=== PATIENT | female | born 1985 | race Caucasian/White ===

== ENCOUNTER → 2017-08-11 | Outpatient (CLI) | payer MEDICAID | END | disposition home or self-care (01) | LOC: US 07:23 | PROVIDERS: ATTEND Acupuncturist | DX: K82.4 Cholesterolosis of gallbladder (principal); K76.0 Fatty (change of) liver, not elsewhere classified | CPT/HCPCS: 76700 ==

== ENCOUNTER 2017-11-13 01:44 | Observation (INO) | payer MEDICAID | END 2017-11-13 03:10 | disposition home or self-care (01) | LOC: L&D 01:44 | PROVIDERS: ADMIT Obstetrics & Gynecology; ATTEND Obstetrics & Gynecology | DX: O99.342 Other mental disorders complicating pregnancy, second trimester (principal); F32.9 Major depressive disorder, single episode, unspecified; Z3A.20 20 weeks gestation of pregnancy | CPT/HCPCS: G0378 ==

== ENCOUNTER → 2017-11-13 | Emergency (ER) | payer MEDICAID | LOC: ER 03:41 | DX: O9A.212 Injury, poisoning and certain other consequences of external causes complicating pregnancy, second trimester (principal); T50.995A Adverse effect of other drugs, medicaments and biological substances, initial encounter; Y92.89 Other specified places as the place of occurrence of the external cause; Z3A.20 20 weeks gestation of pregnancy | CPT/HCPCS: 99281 ==